=== PATIENT | female | born 1975 | race Hispanic/Latino ===

== ENCOUNTER 2019-09-05 19:24 | Emergency (ER) | payer OTHER, SELFPAY ==
--- NOTE | ~2019-09-05 | XR_ITS ---
EXAMINATION: XR chest 2V DATE: 09/05/2019 19:58 INDICATION: Chest pain and shortness of breath TECHNIQUE: PA and lateral views of the chest are obtained. COMPARISON: None available FINDINGS: The lungs are free of acute opacities. There is no pleural effusion or pneumothorax. The ca rdiomediastinal silhouette is normal. There is mild thoracic spondylosis. IMPRESSION: 1. No acute cardiopulmonary abnormality. Reviewed, dictated and finalized at location A.
--- NOTE | 2019-09-05 19:30 | ED.URI ---
HPI - URI/Sore Throat General Chief Complaint: Upper Respiratory Infection Stated Complaint: headache/jaw pain/sob/chest congestion Time Seen by Provider: 09/05/19 19:37 Source: patient and RN notes reviewed Mode of arrival: ambulatory Limitations: no limitations History of Present Illness HPI Narrative: 43 year female presents with concern for shortness of breath, headache, chest congestion, back and chest ache with deep breathing. Reports symptoms started 1 week ago and have gradually worsened. She has not taken her temperature, however reports feeling sweats. She reports one episode of diarrhea today. MD elicited complaint: other (chest congestion) Related Data Allergies Allergy/AdvReac Type Severity Reaction Status Date / Time No Known Drug Allergies Allergy Unknown Unknown Verified 09/05/19 19:28 Review of Systems Review of Systems: Narrative: CONSTITUTIONAL: Reports malaise, sweats. Denies chills, or fever. EYES: Denies visual changes, redness, or discharge. ENT: Denies rhinorrhea, congestion, sinus pain, otalgia and sore throat. Reports jaw pain CARDIOVASCULAR: Denies chest pain, palpitations, or edema. RESPIRATORY: Denies cough. Reports chest congestion, dyspnea. GASTROINTESTINAL: Denies abdominal pain, nausea, vomiting, diarrhea SKIN: Denies rash or itching. MUSCULOSKELETAL: Denies myalgia. NEUROLOGIC: Reports severe headache. All systems reviewed & are unremarkable except as noted in HPI and below PMFSH Social History Social History Gender identity (if verbalized by the patient): Female Comments At time of signature, agree with nursing past medical, surgical, social and family history. There is no relevant family history pertinent to the presenting complaint Exam Narrative: Exam Narrative: GENERAL: Well-appearing, well-nourished, and in no acute distress. HEAD: Normocephalic EYES: PERRLA, conjunctivae clear ENT: Nares clear, turbinates patent. Mucous membranes moist. TM pearly ramos with sharp light reflex bilaterally; no tragal tenderness. Oropharynx not erythematous without lesions. Tonsils not enlarged and without exudate, no drooling, no hoarseness, no trismus, uvula midline. NECK: Supple. No lymphadenopathy CHEST: Left lung clear to auscultation, crackles noted in the right lower lobe, otherwise breath sounds equal. No wheezing, rales, or stridor. No respiratory distress, speaks in full sentences. HEART: Regular rate and rhythm. No murmur heard. SKIN: Warm, dry, no rash. NEURO: Alert and oriented x3. PSYCH: Normal mood and affect Course Course Emergency Course: Patient is aware of diagnosis, understands and agrees to treatment plan. Anticipatory guidance given. Patient agrees to follow-up as directed and is aware of reasons to seek care at the emergency department. Portions of this record may have been created with voice recognition software Vital Signs Vital signs: Vital Signs Temperature 98.1 F 09/05/19 19:38 Pulse Rate 67 09/05/19 19:38 Respiratory Rate 20 09/05/19 19:38 Blood Pressure 121/79 09/05/19 19:38 Pulse Oximetry 100 09/05/19 19:38 Temperature 98.1 F 09/05/19 19:38 Pulse Rate 67 09/05/19 19:38 Respiratory Rate 20 09/05/19 19:38 Blood Pressure 121/79 09/05/19 19:38 Pulse Oximetry 100 09/05/19 19:38 Reviewed. MDM - URI/Sore Throat MDM Narrative Medical decision making narrative: Differential diagnosis considered: COVID-19 strep pharyngitis, allergic rhinitis, upper respiratory tract infection, sinusitis, rhinosinusitis, nasopharyngitis. viral pharyngitis, otitis media, otitis externa, pneumonia, bronchitis, viral cough syndrome, viral syndrome, and influenza. Exam findings show no acute concerns or changes; patient is non-toxic appearing and is in no distress. Patient is appropriate for outpatient treatment and follow-up. Critical Care Time Critical Care Time Critical Care Time: No Discharge Plan Discharge Clinical Impression: Shortness of b
[2019-09-05 19:38] VITALS: BP 121/79; PULSE 67; RESP 20; TEMP 36.7; O2SAT 100
== END 2019-09-05 20:41 | disposition home or self-care (01) ==
PROVIDERS: Emergency Provider Nurse Practitioner
DX: R06.02 Shortness of breath (principal); R09.89 Other specified symptoms and signs involving the circulatory and respiratory systems
CPT/HCPCS: 71046; 99213; G0463

== ENCOUNTER 2019-09-09 21:06 | Emergency (ER) | payer OTHER, SELFPAY ==
[2019-09-09 21:14] VITALS: BP 149/91; PULSE 79; RESP 16; TEMP 36.7; O2SAT 100
--- NOTE | 2019-09-09 21:24 | ED.ANXIETY ---
HPI - Anxiety General Chief Complaint: Anxiety Stated Complaint: anxiety attack? Time Seen by Provider: 09/09/19 21:20 Source: patient and RN notes reviewed Mode of arrival: ambulatory Limitations: no limitations History of Present Illness HPI narrative: A 43 y/o female presents to the ED with increased anxiety for the past 5 days. She states that she has been under more stress lately because of the COVID outbreak and because her mother in March. She reports associated SOB, feeling flush, nausea, mild epigastric ABD pain, and decreased appetite. She also reports lower back pain that she was seen for at for 5 days ago. She notes that they started her on abx at that time. She also notes that she had a similar event while in [place] after her mother in March. She denies any vomiting, lightheadedness, dizziness, tingling, CP, or numbness. MD complaint: anxiety Onset (ago): day(s) (5) Symptoms: dyspnea and other (feeling flush, nausea, mild epigastric ABD pain, decreased appetite, and lower back pain) History of similar episodes: Yes Provoking factors: recent /illness of family member (mother) and other (COVID outbreak) Associated symptoms: denies other symptoms Related Data Allergies Allergy/AdvReac Type Severity Reaction Status Date / Time No Known Drug Allergies Allergy Unknown Unknown Verified 09/09/19 21:16 Review of Systems Review of Systems: All systems reviewed & are unremarkable except as noted in HPI and below Constitutional: Constitutional: Reports poor appetite and Reports other (feeling flush) Cardiovascular: Cardiovascular: Denies chest pain and Denies lightheadedness Respiratory: Respiratory: Reports dyspnea Gastrointestinal: Gastrointestinal: Reports abdominal pain (mild epigastric), Reports nausea and Denies vomiting Musculoskeletal: Musculoskeletal: Reports back pain (lower) Neurologic: Denies dizziness, Denies numbness and Denies tingling Psychiatric: Psychiatric: Reports anxiety PMFSH Past Medical History Medical History Medical history unknown Surgical History Surgical History Surgical history unknown Social History Social History (Updated 09/09/19 @ 21:43 by Jeremy Barton) Smoking status: Never smoker Second hand tobacco smoke exposure: Yes Gender identity (if verbalized by the patient): Female Exam Narrative: Exam Narrative: General appearance: Well-developed, well-nourished, in tears, at the bedside Skin: Normal color Head: Normocephalic, nontraumatic Eyes: Clear conjunctiva ENT: Oropharynx normal, ears normal, nose normal Neck: Supple, nontender Chest and respiratory: Airway patent, no respiratory distress, no accessory muscle use Heart: Regular rate/rhythm Abdomen: Soft, nontender, no organomegaly, quiet bowel sounds Vascular: Normal peripheral pulses, normal capillary refill. Musculoskeletal: Normal range of motion, nontender back Neurologic: Alert and oriented ?3, BENCH GRINDER is normal as tested, no gross motor deficit Course Course Emergency Course: Improving Vital Signs Vital signs: Vital Signs Temperature 36.7 C 09/09/19 21:14 Pulse Rate 79 09/09/19 21:14 Respiratory Rate 16 09/09/19 21:14 Blood Pressure 149/91 H 09/09/19 21:14 Pulse Oximetry 100 09/09/19 21:14 Temperature 36.7 C 09/09/19 21:14 Pulse Rate 79 09/09/19 21:14 Respiratory Rate 16 09/09/19 21:14 Blood Pressure 149/91 H 09/09/19 21:14 Pulse Oximetry 100 09/09/19 21:14 MDM - Anxiety MDM Narrative Medical decision making narrative: Anxiety reaction is my concern. Lizete
[2019-09-09] MEDS: LORAZEPAM 0.5 MG TABLET 1 MG PO (21:50)
[2019-09-09 22:47] VITALS: BP 116/69; PULSE 71; RESP 18; O2SAT 100
== END 2019-09-09 22:45 | disposition home or self-care (01) ==
PROVIDERS: Emergency Provider Emergency Medicine
DX: F41.9 Anxiety disorder, unspecified (principal)
CPT/HCPCS: 99283; A9270

== ENCOUNTER 2019-09-18 01:13 | Emergency (ER) | payer OTHER, SELFPAY ==
--- NOTE | ~2019-09-18 | CT_ITS ---
EXAMINATION: CT abdomen pelvis w con DATE: 09/18/2019 02:17 INDICATION: Low abdominal pain. Nausea and vomiting. TECHNIQUE: Computed tomography (CT) of the abdomen and pelvis was performed with 100 mL Omnipaque 350 intravenous contrast. Automated exposure control and iterative reconstruction technique were employe d. The dose-length product was 235.65 mGy-cm. COMPARISON: CT abdomen 02/02/2007 FINDINGS: The visualized portions of the lung bases demonstrate mild atelectasis on the right. No ple ural effusion. The heart size is normal. No pericardial effusion. There are cysts in the liver measur ing up to 6 mm. There are changes of cholecystectomy. The spleen, pancreas, adrenal glands, and kidne ys are normal. There are no dilated loops of bowel. There are changes of appendectomy. There are no p athologically enlarged lymph nodes. There is no free intraperitoneal fluid. There is mild lumbar spon dylosis. IMPRESSION: 1. No etiology for the patient's symptoms. Reviewed, dictated and finalized at location A.
--- NOTE | 2019-09-18 01:21 | ED.ABDPAIN ---
HPI - Abdominal Pain General Chief Complaint: Abdominal Pain Stated Complaint: abd pain Time Seen by Provider: 09/18/19 01:16 Source: patient and RN notes reviewed Mode of arrival: ambulatory Limitations: no limitations History of Present Illness HPI narrative: Pt is a 43 y/o female who presents to the ED with c/o diffuse ABD pain starting 2 weeks ago. She notes that her pain becomes aggravated when she gets anxious. Pt states that she has had nausea accompanying her pain, and notes that she vomited yesterday. She currently denies any fever or diarrhea. Pt states that she hasn't taken any pain medications for her symptoms. MD elicited complaint: abdominal pain Onset (ago): week(s) (2) Location: diffuse Exacerbating factors: other (anxiety) Associated symptoms: nausea and vomiting Treatments prior to arrival: other (none) Related Data Allergies Allergy/AdvReac Type Severity Reaction Status Date / Time No Known Drug Allergies Allergy Unknown Unknown Verified 09/09/19 21:16 Review of Systems Review of Systems: All systems reviewed & are unremarkable except as noted in HPI and below Constitutional: Constitutional: Denies fever(s) Gastrointestinal: Gastrointestinal: Reports abdominal pain (diffuse ABD pain), Denies diarrhea, Reports nausea and Reports vomiting PMFSH Past Medical History Medical History (Updated 09/18/19 @ 03:02 by Ronaldo Padilla DO) Bronchitis Surgical History Surgical History (Updated 09/18/19 @ 02:49 by Riccardo Watt) Hx of appendectomy Hx of cholecystectomy Social History Social History Smoking status: Never smoker Second hand tobacco smoke exposure: Yes Gender identity (if verbalized by the patient): Female Exam Narrative: Exam Narrative: APPEARANCE: No acute distress, nontoxic, resting in bed HEENT: Normocephalic, atraumatic, OMM RESPIRATORY: No respiratory distress, clear to auscultation bilaterally with no rhonchi wheezing or rales CARDIOVASCULAR: RRR s murmur ABDOMINAL: Soft, nondistended, tender to palpation epigastric, right upper quadrant left upper quadrant, no tenderness in right lower quadrant left lower quadrant, no rebound or guarding MUSCULOSKELETAl: Moves all extremities. No clubbing, cyanosis or edema. NEURO: Awake and alert. Following commands, speech normal, no focal deficits SKIN:: Warm, dry. Normal Color PSYCHIATRIC: Normal affect/mood Course Course Emergency Course: Patient states that they are feeling much better at this time. States abdominal pain has improved. Repeat abdominal exam shows the patient's abdomen to be soft with no surgical abdomen present. Discussed with patient results of workup and diagnosis. Discussed need for follow-up with primary care physician, reasons to return to the emergency department in proper use of medication. Patient understands and agrees to current treatment plan Vital Signs Vital signs: Vital Signs Temperature 98.9 F 09/18/19 01:22 Pulse Rate 89 09/18/19 01:22 Respiratory Rate 18 09/18/19 01:22 Blood Pressure 116/92 H 09/18/19 01:22 Pulse Oximetry 100 09/18/19 01:22 Temperature 98.9 F 09/18/19 02:01 Pulse Rate 89 09/18/19 01:22 Respiratory Rate 18 09/18/19 01:22 Blood Pressure 116/92 H 09/18/19 01:22 Pulse Oximetry 100 09/18/19 01:22 MDM - Abdominal Pain MDM Narrative Medical decision making narrative: Patient's abdomen is soft without significant pain or signs of surgical abdomen on serial exams. Lab and x-ray evaluations are reviewed and patient is felt to be a reasonable candidate for outpatient management. Patient was instructed as to limitations of x-ray and laboratory evaluation and encouraged to return to ED or primary physician for repeat exam in 12 hours if continued or worsening pain Lab Data Result diagrams: 09/18/19 01:33 09/18/19 01:33 Labs: Lab Results 09/18/19 09/18/19 09/18/19 Range/Units 01:3
[2019-09-18 01:22] VITALS: BP 116/92; PULSE 89; RESP 18; TEMP 37.2; O2SAT 100
[2019-09-18] MEDS: SODIUM CHLORIDE 0.9% IV 1,000 ML 999 ML IV CONT (01:30)
[2019-09-18] MEDS: FAMOTIDINE 20 MG/2 ML VIAL IV PUSH (01:31)
[2019-09-18] MEDS: ONDANSETRON INJ 4 MG/2 ML VIAL IV PUSH (01:31)
[2019-09-18 01:44] LABS: Basophils Percent Auto 0.4 % (0.2-1.2); Eosinophils Absolute Auto 0.1 K/mm3 (0-0.3); Eosinophils Percent Auto 0.7 % (0-4.4); Hematocrit 38.4 % (37.0-47.0); Hemoglobin 13.3 g/dL (12.0-15.0); Immature Granulocyte Absolute 0.01 K/mm3 (0.00-0.031); Immature Granulocyte Percent A 0.1 % (0-0.5); Lymphocytes Absolute Auto 2.14 K/mm3 (0.9-3.2); Lymphocytes Percent Auto 31.6 % (18.3-44.2); Mean Corpuscular HGB Conc 34.6 g/dl (32-36); Mean Corpuscular Hemoglobin 29.6 pg (26-34); Mean Corpuscular Volume 85.5 fl (80-100); Mean Platelet Volume 10.1 fl (7.4-10.4); Monocytes Absolute Auto 0.6 K/mm3 (0.1-0.6); Monocytes Percent Auto 8.4 % (2.6-8.5); Neutrophils Percent Auto 58.8 % (45.5-73.1); Platelet Count Result 235 k/mm3 (150-375); Red Blood Count 4.49 M/mm3 (4.2-5.4); Red Cell Distribution Width 12.4 % (11.5-14.5); White Blood Count 6.8 K/mm3 (4.5-10.0)
[2019-09-18 01:49] LABS: Add Urine Microscopic? YES; Appearance Urine Clear (Clear); Bacteria Urine Trace /hpf; Bilirubin Urine Negative (Negative); Blood Urine 2+ (Negative); Color Urine Colorless (Yellow); Glucose Urine UA Negative (Negative); Ketones Urine Negative (Negative); Leukocyte Esterase Ur Negative LEU/UL (Negative); Mucus Urine Rare /lpf; Nitrate Urine Negative (Negative); Protein Urine Negative (Negative); RBC Urine 0-2 /hpf (0-2); Squamous Epithelial Cell Urine Few /hpf (Few); Urobilinogen Urine Negative mg/dL (<2.0); WBC Urine 0-3 /hpf
[2019-09-18 01:50] LABS: Specific Grav Ur 1.004 (1.001-1.035)
[2019-09-18 01:51] LABS: Alanine Aminotransferase 17 U/L (4-35); Albumin Level 4.4 g/dL (3.5-5.1); Alkaline Phosphatase 74 U/L (38-126); Aspartate Amino Transferase 20 U/L (14-36); Bilirubin,Total 0.6 mg/dL (0.2-1.3); Blood Urea Nitrogen 6 mg/dL (7-17); Calcium 9.5 mg/dL (8.4-10.2); Carbon Dioxide 24 mmol/L (22-30); Chloride 106 mmol/L (98-107); Estimated CRCL calculation 87 ml/min; Estimated Glomerular Filt Rate > 60; Glucose 113 mg/dL (65-105); Lipase 258 U/L (23-300); Potassium 3.1 mmol/L (3.4-5.0); Sodium 138 mmol/L (137-145)
[2019-09-18 02:01] VITALS: TEMP 37.2
[2019-09-18] MEDS: POTASSIUM CHLORIDE 20 MEQ TABLET 40 MEQ PO (03:06)
[2019-09-18 03:16] VITALS: BP 108/73; PULSE 79; RESP 14; TEMP 36.8; O2SAT 100
== END 2019-09-18 03:19 | disposition home or self-care (01) ==
PROVIDERS: Emergency Provider Emergency Medicine
DX: R10.13 Epigastric pain (principal)
CPT/HCPCS: 36415; 74177; 80053; 81001; 81025; 83690; 85025; 96361; 96374; 96375; 99284; A9270; J0131; J2405; J7030; Q9967

== ENCOUNTER 2019-09-21 14:12 | Emergency (ER) | payer OTHER, SELFPAY ==
[2019-09-21 14:14] VITALS: BP 118/72; PULSE 71; RESP 13; TEMP 36.8; O2SAT 100
--- NOTE | 2019-09-21 14:20 | ED.ABDPAIN ---
HPI - Abdominal Pain General Chief Complaint: Abdominal Pain Stated Complaint: abd pain Time Seen by Provider: 09/21/19 14:19 Source: patient and RN notes reviewed Mode of arrival: ambulatory Limitations: no limitations History of Present Illness HPI narrative: A 43 y/o female presents to the ED with severe, constant, epigastric ABD pain since 09/06/19. She reports associated decreased intake, dizziness, and nausea. She notes that the pain radiates into her back. She also notes that she has already been seen here multiple times for these same symptoms and has been d/c and told to follow up with a GI doctor. She reports that she has an appointment with a GI doctor in 3 days but that she couldn't stand the pain, so she decided to come back in. She denies any sick contacts or any vomiting, fevers, chills, cough, rhinorrhea, diarrhea, SOB, or CP. MD elicited complaint: abdominal pain Pertinent past history: none Onset (ago): day(s) (15) Pain Consistency: constant Location: epigastric Severity: severe Radiation: back Associated symptoms: nausea and other (dizziness and decreased intake) Related Data Allergies Allergy/AdvReac Type Severity Reaction Status Date / Time No Known Drug Allergies Allergy Unknown Unknown Verified 09/21/19 14:16 Review of Systems Review of Systems: All systems reviewed & are unremarkable except as noted in HPI and below Constitutional: Constitutional: Denies chills, Denies fever(s) and Reports poor appetite ENT: Denies nasal discharge Cardiovascular: Cardiovascular: Denies chest pain Respiratory: Respiratory: Denies cough and Denies dyspnea Gastrointestinal: Gastrointestinal: Reports abdominal pain (Epigastric), Denies diarrhea, Reports nausea and Denies vomiting Neurologic: Reports dizziness PMFSH Past Medical History Medical History (Updated 09/21/19 @ 14:45 by Ellie Viera MD) Bronchitis Gall bladder disease Surgical History Surgical History (Updated 09/21/19 @ 14:42 by Jeremy Barton) Hx of appendectomy Hx of cholecystectomy Hx of tubal ligation Social History Social History Smoking status: Never smoker Second hand tobacco smoke exposure: Yes Gender identity (if verbalized by the patient): Female Exam Narrative: Exam Narrative: General appearance: Well-developed, well-nourished Skin: Normal color Head: Normocephalic, nontraumatic Eyes: Clear conjunctiva ENT: Oropharynx normal, ears normal, nose normal Neck: Supple, nontender Chest and respiratory: Airway patent, no respiratory distress, no accessory muscle use Heart: Regular rate/rhythm Abdomen: Soft, mild diffuse tenderness epigastric area, no organomegaly, quiet bowel sounds Vascular: Normal peripheral pulses, normal capillary refill. Musculoskeletal: Normal range of motion, nontender back Neurologic: Alert and oriented ?3, CERAMICS TEACHER is normal as tested, no gross motor deficit Course Course Emergency Course: Stable Vital Signs Vital signs: Vital Signs Temperature 36.8 C 09/21/19 14:14 Pulse Rate 71 09/21/19 14:14 Respiratory Rate 13 09/21/19 14:14 Blood Pressure 118/72 09/21/19 14:14 Pulse Oximetry 100 09/21/19 14:14 Temperature 36.8 C 09/21/19 14:14 Pulse Rate 70 09/21/19 15:40 Respiratory Rate 16 09/21/19 15:40 Blood Pressure 105/76 09/21/19 15:40 Pulse Oximetry 100 09/21/19 15:40 MDM - Abdominal Pain MDM Narrative Medical decision making narrative: Patient presents with epigastric pain since September 04, patient been laid off for the last weeks because of the [place] epidemic, patient denies any fever, chills, coughing or any respiratory symptoms. Patient d
[2019-09-21 14:38] LABS: Basophils Percent Auto 0.2 % (0.2-1.2); Eosinophils Percent Auto 0.4 % (0-4.4); Hematocrit 36.9 % (37.0-47.0); Hemoglobin 12.8 g/dL (12.0-15.0); Immature Granulocyte Absolute 0.01 K/mm3 (0.00-0.031); Immature Granulocyte Percent A 0.2 % (0-0.5); Lymphocytes Absolute Auto 1.23 K/mm3 (0.9-3.2); Lymphocytes Percent Auto 25.7 % (18.3-44.2); Mean Corpuscular HGB Conc 34.7 g/dl (32-36); Mean Corpuscular Hemoglobin 29.8 pg (26-34); Monocytes Absolute Auto 0.5 K/mm3 (0.1-0.6); Monocytes Percent Auto 9.6 % (2.6-8.5); Neutrophils Absolute Auto 3.1 K/mm3 (1.3-6.7); Neutrophils Percent Auto 63.9 % (45.5-73.1); Platelet Count Result 207 k/mm3 (150-375); Red Blood Count 4.29 M/mm3 (4.2-5.4); Red Cell Distribution Width 12.4 % (11.5-14.5); White Blood Count 4.8 K/mm3 (4.5-10.0)
[2019-09-21 14:42] LABS: Add Urine Microscopic? YES; Appearance Urine Clear (Clear); Bacteria Urine Trace /hpf; Bilirubin Urine Negative (Negative); Blood Urine 3+ (Negative); Color Urine Yellow (Yellow); Glucose Urine UA Negative (Negative); Ketones Urine Negative (Negative); Leukocyte Esterase Ur Negative LEU/UL (Negative); Mucus Urine Heavy /lpf; Nitrate Urine Negative (Negative); Protein Urine 1+ mg/dL (Negative); Specific Grav Ur 1.015 (1.001-1.035); Squamous Epithelial Cell Urine Few /hpf (Few); WBC Urine 0-3 /hpf
[2019-09-21 14:49] LABS: Alanine Aminotransferase 20 U/L (4-35); Albumin Level 4.3 g/dL (3.5-5.1); Alkaline Phosphatase 63 U/L (38-126); Aspartate Amino Transferase 21 U/L (14-36); Bilirubin,Total 0.5 mg/dL (0.2-1.3); Blood Urea Nitrogen 7 mg/dL (7-17); Calcium 9.3 mg/dL (8.4-10.2); Carbon Dioxide 26 mmol/L (22-30); Chloride 106 mmol/L (98-107); Estimated CRCL calculation 102 ml/min; Estimated Glomerular Filt Rate > 60; Glucose 111 mg/dL (65-105); Lipase 253 U/L (23-300); Potassium 3.4 mmol/L (3.4-5.0); Sodium 140 mmol/L (137-145)
[2019-09-21 15:40] VITALS: BP 105/76; PULSE 70; RESP 16; O2SAT 100
== END 2019-09-21 15:40 | disposition home or self-care (01) ==
PROVIDERS: Emergency Medicine; Emergency Provider Emergency Medicine
DX: R10.13 Epigastric pain (principal)
CPT/HCPCS: 36415; 80053; 81001; 81025; 83690; 85025; 99283

== ENCOUNTER 2021-01-12 18:05 | Emergency (ER) | payer BC, SELFPAY ==
[2021-01-12 18:19] VITALS: BP 115/73; PULSE 80; RESP 16; TEMP 37.4; O2SAT 100
--- NOTE | 2021-01-12 18:36 | ED.URI ---
HPI - URI/Sore Throat General Chief Complaint: Upper Respiratory Infection Stated Complaint: sore throat Time Seen by Provider: 01/12/21 18:30 Source: patient, RN notes reviewed and old records reviewed Mode of arrival: ambulatory Limitations: no limitations History of Present Illness HPI Narrative: 45 year old female who presents to [facility] care with one week duration of sore throat, sinus drainage with congestion, bilateral ear pain with right greater than left for one week duration. Patient states that she has sinus congestion on the left side of he head with discomfort feeling behind her left eye. She reports also that her throat is burning and aching especially with swallowing rates pain 4/10. Patient reports that she has been taking OTC cold medication and some Mauritian medicine with no improvement in her symptoms. MD elicited complaint: sore throat, rhinorrhea, nasal congestion, sinus pain and other (right ear pain) Onset (ago): week(s) (1) Treatments prior to arrival: cold medicine and other ([place]itian medicine) Related Data Allergies Allergy/AdvReac Type Severity Reaction Status Date / Time No Known Drug Allergies Allergy Unknown Unknown Verified 09/21/19 14:16 Review of Systems Review of Systems: CONSTITUTIONAL: Denies fever, chills, or sweats. EYES: Denies visual changes, redness, or discharge. ENT: Positive for rhinorrhea, congestion, sore throat, or otalgia Right >Left CARDIOVASCULAR: Denies chest pain, palpitations, or edema. RESPIRATORY: Denies cough or dyspnea. GASTROINTESTINAL: Denies abdominal pain, nausea, vomiting, or diarrhea. GENITOURINARY: Denies dysuria or hematuria. SKIN: Denies rash or itching. MUSCULOSKELETAL: Denies back pain, joint pain, or myalgia. NEUROLOGIC: positive headache behind left eye area, no numbness, or weakness. PSYCHIATRIC: Positive history of anxiety or depression. All systems reviewed & are unremarkable except as noted in HPI and below PMFSH Past Medical History Medical History (Updated 01/17/21 @ 12:19 by Lupe Knight NP) Anxiety Bronchitis Gall bladder disease Surgical History Surgical History (Updated 09/21/19 @ 14:42 by Jeremy Barton) Hx of appendectomy Hx of cholecystectomy Hx of tubal ligation Family History Family History (Updated 01/17/21 @ 12:13 by Lupe Knight NP) Grandparent Leukemia Social History Social History (Updated 01/17/21 @ 12:21 by Lupe Knight NP) Smoking status: Never smoker Second hand tobacco smoke exposure: Yes Alcohol intake: current Alcohol use details: rare social Substance use: never Living arrangements: with family Gender identity (if verbalized by the patient): Female Exam Narrative: GENERAL: Well-appearing, well-nourished, and in no acute distress. HEAD: Normocephalic, atraumatic. EYES: PERRLA and EOMI. ENT: Nares red with clear rhinorrhea no epistaxis. Mucous membranes moist.TM's normal with good light reflex, throat pink with no lesions or exudates, tonsils red and enlarged post nasal drainage present, NECK: Supple. lymphadenopathy CHEST: Clear to auscultation. No respiratory distress.SAO2 100% on room air HEART: Regular rate and rhythm. No murmur heard. Normal peripheral pulses. ABDOMEN: Soft, nontender, nondistended, normal active bowel sounds. EXTREMITIES: Normal range of motion. No edema. SKIN: Warm, dry, no rash. NEURO: No focal deficits. Alert and oriented x3. Course Vital Signs Vital signs: Vital Signs Temperature 37.4 C 01/12/21 18:19 Pulse Rate 80 01/12/21 18:19 Respiratory Rate 16 01/12/21 18:19 Blood Pressure 115/73 01/12/21 18:19 Pulse Oximetry 100 01/12/21 18:19 Temperature 37.4 C 01/12/21 18:19 Pulse Rate 80 01/12/21 18:19 Respiratory Rate 16 01/12/21 18:19 Blood Pressure 115/73 01/12/21 18:19 Pulse Oximetry 100 01/12/21 18:19 MDM - URI/Sore Throat Differential Diagnosis Differential diagnosis: Likely upper respiratory infection,
== END 2021-01-12 18:57 | disposition home or self-care (01) ==
PROVIDERS: Emergency Provider Registered Nurse
DX: J03.90 Acute tonsillitis, unspecified (principal); J06.9 Acute upper respiratory infection, unspecified
CPT/HCPCS: 87081; 87880; 99213; G0463

== ENCOUNTER 2021-02-02 16:41 | Emergency (ER) | payer BC, SELFPAY ==
--- NOTE | ~2021-02-02 | XR_ITS ---
XR chest 2V DATE: 02/02/2021 17:10 INDICATION: Productive cough for one week. Nonsmoker. TECHNIQUE: PA and lateral views COMPARISON: 09/05/2019 2 view chest FINDINGS: Normal heart size. No hilar or mediastinal enlargement. No pulmonary infiltrate or consolid ation, pleural effusion or pulmonary vascular congestion or pneumothorax. Status post cholecystectomy. IMPRESSION: No active cardiopulmonary disease Reviewed, dictated and finalized at location A.
--- NOTE | 2021-02-02 17:07 | ED.URI ---
HPI - URI/Sore Throat General Chief Complaint: Upper Respiratory Infection Stated Complaint: cough/chest pain Source: patient and RN notes reviewed Limitations: no limitations History of Present Illness HPI Narrative: The vaccinated patient, a non-smoker/nondrinker here with other sick family members, presents with today with cough. Patient states she was seen about a couple weeks ago and treated for sore throat and cough with amoxicillin and Decadron. She notes some mild improvement, but still has some cough, possible wheeze and odynophagia. No sneezing, fever, pets/smokers triggers, sputum changes; within the year she had Covid illness-now no fever, loss of taste/smell, rash, vomiting/diarrhea. Symptoms are mild, unrelated to food, position. Related Data Home Medications Medication Instructions Recorded Confirmed amitriptyline 25 mg PO DAILY 02/02/21 02/02/21 Allergies Allergy/AdvReac Type Severity Reaction Status Date / Time No Known Drug Allergies Allergy Unknown Unknown Verified 02/02/21 16:55 Review of Systems Review of Systems: General/Constitutional: No weight loss,fever Eyes: N0: Redness,discharge Ears/Nose/Throat: No: Epistaxis,ear discharge Respiratory: Denies: Hemoptysis Gastrointestinal: No Vomiting, Bleeding-rectal Skin: No Lumps, eruption Neurologic: No Focal Weakness,Sz Hematologic: Denies: Petechiae/Purpura Psychiatric: No: Suicida ideationl All Other Systems: Reviewed and Negative [facility] Past Medical History Medical History (Updated 02/02/21 @ 17:53 by Emmanuel Garcia MD) Anxiety Bronchitis Gall bladder disease Surgical History Surgical History (Updated 09/21/19 @ 14:42 by Jeremy Barton) Hx of appendectomy Hx of cholecystectomy Hx of tubal ligation Family History Family History (Updated 01/17/21 @ 12:13 by Lupe Knight NP) Grandparent Leukemia Social History Social History (Updated 01/17/21 @ 12:21 by Lupe Knight NP) Smoking status: Never smoker Second hand tobacco smoke exposure: Yes Alcohol intake: current Alcohol use details: rare social Substance use: never Gender identity (if verbalized by the patient): Female Comments At time of signature, agree with nursing past medical, surgical, social and family history. There is no relevant family history pertinent to the presenting complaint Exam Narrative: General Appearance: Well appearing, No distress EYE: PERRLA, Conjunctiva clear Ears: External ear normal Nose: Normal nose Mouth/Throat: Normal appearing, Normal lips Neck: Supple Respiratory: Airway patent, No respiratory distress Cardiovascular: RRR Abdomen: Soft, Non-tender, Musculoskeletal: Full ROM Skin: Warm, Dry Neurological: A&O x3, CN II-X intact Psychiatric: Normal mood, Normal affect MDM - URI/Sore Throat Lab Data Labs: Lab Results 02/02/21 Range/Units Unknown POC SARS CoV-2 Ag Negative (Negative) Discharge Plan Discharge Clinical Impression: Cough Patient Disposition: Home, Self-Care Condition: Stable Instructions: Antibiotic Form, Chronic Cough (ED) Additional Instructions: See your PMD in follow-up You may also try [id number] antacids [like Pepcid, or Prilosec] Prescriptions: New azithromycin 250 mg tablet See Rx Instructions .ROUTE .COMPLEX Qty: 6 RF: 0 benzonatate [Tessalon Perles] 100 mg capsule 100 mg PO TID Qty: 20 RF: 1 albuterol sulfate [Ventolin HFA] 90 mcg/actuation HFA aerosol inhaler 2 puff INHALATION QID PRN (Reason: shortness of breath or wheezing) Qty: 8.5 RF: 1 No Action amitriptyline 25 mg tablet 25 mg PO DAILY RF: 0 Follow-up/Referrals: UNKNOWN,DOCTOR [Primary Care Provider] -
== END 2021-02-02 18:03 | disposition home or self-care (01) ==
PROVIDERS: Emergency Provider Emergency Medicine
DX: R05 Cough (principal); Z20.822 Contact with and (suspected) exposure to COVID-19
CPT/HCPCS: 71046; 87426; 99213; C9803; G0463

== ENCOUNTER 2021-12-20 01:22 | Emergency (ER) | payer OTHER, SELFPAY ==
--- NOTE | ~2021-12-20 | XR_ITS ---
EXAMINATION: XR chest 1V portable INDICATION: Cough TECHNIQUE: Portable AP chest at 0 to 46 hours COMPARISON: 02/02/2021 FINDINGS: There are minimal airspace opacities in the left lung base. No pleural effusion or pneumoth orax. The cardiomediastinal silhouette is normal. IMPRESSION: 1. Minimal left basilar airspace opacity, consistent with atelectasis versus pneumonia Reviewed, dictated and finalized at location B. IMPRESSION: 1. Minimal left basilar airspace opacity, consistent with atelectasis versus pn eumonia
[2021-12-20 01:34] VITALS: BP 117/84; PULSE 79; RESP 18; TEMP 36.6; O2SAT 99
--- NOTE | 2021-12-20 02:06 | ED.GENADULT ---
HPI - General Adult General Chief complaint: Upper Respiratory Infection Stated complaint: COUGHING FITS Time Seen by Provider: 12/20/21 01:28 History of Present Illness HPI narrative: 38-year-old female presenting to the emergency department for evaluation persistent cough. Patient states Sunday she was having some sore throat and had some laryngitis. Patient states on Sunday and she began developing cough. Patient did have follow-up with her primary care physician and was provided albuterol inhaler and was taking [id number] cough medication. Patient states tonight just before arrival she had onset of a coughing fit. Patient states in response to coughing fit she had some generalized chest tightness. Patient did use her albuterol inhaler and states that this proved her symptoms. Upon arrival emergency department patient is in no distress and has only minimal cough. Patient denies any previous history of lung disease. Patient is not a smoker. Patient is vaccinated against COVID. Patient denies any known COVID exposure. Related Data Home Medications Medication Instructions Recorded Confirmed amitriptyline 25 mg tablet 25 mg PO DAILY 02/02/21 02/02/21 Allergies Allergy/AdvReac Type Severity Reaction Status Date / Time No Known Drug Allergies Allergy Unknown Unknown Verified 12/20/21 01:41 Review of Systems Review of Systems: CONSTITUTIONAL: Denies fever, chills, or sweats. EYES: Denies visual changes, redness, or discharge. ENT: Denies rhinorrhea, congestion, sore throat, or otalgia. CARDIOVASCULAR: Denies chest pain, palpitations, or edema. RESPIRATORY: See HPI GASTROINTESTINAL: Denies abdominal pain, nausea, vomiting, or diarrhea. GENITOURINARY: Denies dysuria or hematuria. SKIN: Denies rash or itching. MUSCULOSKELETAL: Denies back pain, joint pain, or myalgia. NEUROLOGIC: Denies headache, numbness, or weakness. [facility] Past Medical History Medical History (Updated 12/20/21 @ 04:20 by Willem Reyez MD) Anxiety Bronchitis Gall bladder disease Surgical History Surgical History (Updated 09/21/19 @ 14:42 by Jeremy Barton) Hx of appendectomy Hx of cholecystectomy Hx of tubal ligation Family History Family History (Updated 01/17/21 @ 12:13 by Lupe Knight NP) Grandparent Leukemia Social History Social History (Updated 01/17/21 @ 12:21 by Lupe Knight NP) Smoking status: Never smoker Second hand tobacco smoke exposure: Yes Alcohol intake: current Alcohol use details: rare social Substance use: never Gender identity (if verbalized by the patient): Female Exam Narrative: APPEARANCE: Well appearing, no pain, no distress, well-nourished. HEAD: normocephalic, atraumatic. EYES: PERRLA/EOMI, conjunctivae clear. NOSE: Normal no drainage THROAT: Pharynx clear, no exudate. NECK: Supple. No adenopathy, no masses. RESPIRATORY: Airway patent, respirations nonlabored. Clear to auscultation bilaterally, no rales, rhonchi, wheezing. CARDIOVASCULAR: Regular rate and rhythm without murmurs rubs or gallops. ABDOMINAL: Soft, nontender, nondistended, normal bowel sounds MUSCULOSKELETAL: Moves all extremities. Strength/ROM intact, No edema, No calf tenderness. NEURO: Alert. Cranial nerves II through XII intact. Grossly intact SKIN: Warm, dry. Normal Color Course Course Emergency Course: Patient reports significant improvement after the breathing treatment. Patient's cough has been controlled. Chest x-ray shows no acute cardiopulmonary abnormality. Patient already has and a butyryl nebulizer at home. Patient was provided Tessalon Perles to additionally help with cough. Patient's COVID was negative. Vital Signs Vital signs: Vital Signs Temperature 97.8 F 12/20/21 01:34 Pulse Rate 79 12/20/21 01:34 Respiratory Rate 18 12/20/21 01:34 Blood Pressure 117/84 12/20/21 01:34 Pulse Oximetry 99 12/20/21 01:34 Oxygen Delivery Room Air 12/20/21 01:34
[2021-12-20] MEDS: ALBUTEROL SULFATE NEB 2.5 MG/3 ML INH 5 MG INHALATION (02:27)
[2021-12-20 02:28] VITALS: PULSE 68; RESP 18
[2021-12-20 02:37] VITALS: PULSE 68; RESP 18
[2021-12-20] MEDS: BENZONATATE 100 MG CAPSULE PO (03:26)
[2021-12-20 03:28] VITALS: BP 108/68; PULSE 88; RESP 18; O2SAT 100
[2021-12-20 04:13] LABS: SARS-CoV-2 RNA PCR Negative
[2021-12-20 04:36] VITALS: BP 114/68; PULSE 76; RESP 18; O2SAT 100
== END 2021-12-20 04:37 | disposition home or self-care (01) ==
PROVIDERS: Emergency Provider Emergency Medicine
DX: J98.01 Acute bronchospasm (principal); R05.1 Acute cough; Z20.822 Contact with and (suspected) exposure to COVID-19; F41.9 Anxiety disorder, unspecified
CPT/HCPCS: 71045; 94640; 99283; A9270; C9803; U0003; U0005

== ENCOUNTER 2021-12-22 11:55 | Emergency (ER) | payer SELFPAY ==
[2021-12-22 12:04] VITALS: BP 109/72; PULSE 71; RESP 16; TEMP 36.6; O2SAT 98
[2021-12-22 12:05] VITALS: BP 109/72; PULSE 71; RESP 16; TEMP 36.6; O2SAT 98
--- NOTE | 2021-12-22 12:18 | ED.URI ---
HPI - URI/Sore Throat General Chief Complaint: Upper Respiratory Infection Stated Complaint: cough Time Seen by Provider: 12/22/21 12:18 Source: patient Mode of arrival: ambulatory Limitations: no limitations History of Present Illness HPI Narrative: 46 yo F presents with c/o continued cough, SOB with exertion, intermittent wheezing. Hx of asthma. using albuterol inhaler with no relief. Was seen in ER two days ago and given tessalon pearle. had neg cheset xr and neg covid test. Asking for a neb tx. States that it really helped. Also requesting medication to do neb at home. States she doesn't have a machine but can use her daughters. Does not have insurance and doesn't want to buy another one. No fever/chills. all systems reviewed and negative except as noted above. Related Data Home Medications Medication Instructions Recorded Confirmed albuterol 90 mcg/actuation aerosol 90 mcg inhalation Q4-6H PRN 12/22/21 12/22/21 inhaler difficulty breathing amitriptyline 25 mg tablet 25 mg PO HS 12/22/21 12/22/21 Allergies Allergy/AdvReac Type Severity Reaction Status Date / Time No Known Drug Allergies Allergy Unknown Unknown Verified 12/22/21 12:19 Review of Systems Review of Systems: CONSTITUTIONAL: Denies fever, chills, or sweats. EYES: Denies visual changes, redness, or discharge. ENT: Denies rhinorrhea, congestion, sore throat, or otalgia. CARDIOVASCULAR: Denies chest pain, palpitations, or edema. RESPIRATORY: Reports cough and dyspnea. GASTROINTESTINAL: Denies abdominal pain, nausea, vomiting, or diarrhea. GENITOURINARY: Denies dysuria or hematuria. SKIN: Denies rash or itching. MUSCULOSKELETAL: Denies back pain, joint pain, or myalgia. NEUROLOGIC: Denies headache, numbness, or weakness. PSYCHIATRIC: Denies anxiety or depression. All other systems reviewed are negative, except as documented in HPI. [facility] Past Medical History Medical History (Updated 12/22/21 @ 13:01 by Luma Soto NP) Anxiety Bronchitis Gall bladder disease Surgical History Surgical History (Updated 09/21/19 @ 14:42 by Jeremy Barton) Hx of appendectomy Hx of cholecystectomy Hx of tubal ligation Family History Family History (Updated 01/17/21 @ 12:13 by Lupe Knight NP) Grandparent Leukemia Social History Social History (Updated 01/17/21 @ 12:21 by Lupe Knight NP) Smoking status: Never smoker Second hand tobacco smoke exposure: Yes Alcohol intake: current Alcohol use details: rare social Substance use: never Gender identity (if verbalized by the patient): Female Comments At time of signature, agree with nursing past medical, surgical, social and family history. There is no relevant family history pertinent to the presenting complaint. Exam Narrative: GENERAL: This is a well-nourished, well-developed patient, in no apparent distress. HEAD: normocephalic, atraumatic. EYES: PERRL. Sclera clear/white. Vision is grossly intact. EARS: External ears normal, auditory canals clear and without drainage, TMs normal without perforation. Hearing grossly intact. NOSE: External nose normal with no obvious nasal discharge, nares without redness, no rhinorrhea. THROAT: Mucous membranes moist, posterior pharynx clear. NECK: Neck supple, non-tender without lymphadenopathy, masses or thyromegaly. CARDIOVASCULAR: Regular rate and rhythm without murmurs, gallops, or rubs. RESPIRATORY: Mildly decreased lung sounds. No wheezing rhonchi or coarseness noted SKIN: warm, Dry, intact with no suspicious lesions or rash, good texture and turgor. NEURO: awake, alert, and oriented to person, place and time. There were no obvious focal neurologic abnormalities. EXTREMITIES: No joint tenderness, effusion, or edema noted. Course Course Level of Care: Express Care Visit Reevaluation(s) Reevaluation #1: Lung sounds clear on auscultation after albuterol treatment. Vital Signs Vital signs: Vital Signs Temperature 36.6 C
[2021-12-22] MEDS: ALBUTEROL SULFATE NEB 2.5 MG/3 ML INH INHALATION (12:47)
== END 2021-12-22 13:25 | disposition home or self-care (01) ==
PROVIDERS: Emergency Provider Nurse Practitioner Family
DX: J45.901 Unspecified asthma with (acute) exacerbation (principal); J06.9 Acute upper respiratory infection, unspecified
CPT/HCPCS: 99213; G0463

== ENCOUNTER 2022-01-03 19:21 | Emergency (ER) | payer SELFPAY ==
[2022-01-03 19:30] VITALS: BP 104/78; PULSE 66; RESP 16; TEMP 36.7; O2SAT 100
--- NOTE | 2022-01-03 20:12 | ED.URI ---
HPI - URI/Sore Throat General Chief Complaint: Upper Respiratory Infection Stated Complaint: Sore Throat,Cough Time Seen by Provider: 01/03/22 19:49 Source: patient Mode of arrival: ambulatory Limitations: no limitations History of Present Illness HPI Narrative: Patient presents today complaining of cough and sore throat. States the symptoms have been ongoing for at least the last 2 to 3 weeks. She has been [facility] this month for same symptoms. She has been treated with steroids, cough medicine, nebulizer treatments. States symptoms have not improved. Reports associated symptoms include fatigue and headache with coughing episodes. Patient is here wondering why her symptoms are persisting. She does not have a PCP. Related Data Home Medications Medication Instructions Recorded Confirmed albuterol 90 mcg/actuation aerosol 90 mcg inhalation Q4-6H PRN 12/22/21 12/22/21 inhaler difficulty breathing amitriptyline 25 mg tablet 25 mg PO HS 12/22/21 12/22/21 Allergies Allergy/AdvReac Type Severity Reaction Status Date / Time No Known Drug Allergies Allergy Unknown Unknown Verified 12/22/21 12:19 Review of Systems Review of Systems: CONSTITUTIONAL: Denies body aches, fever, chills, or sweats.+ Fatigue EYES: Denies visual changes, redness, or discharge. ENT: Denies rhinorrhea, congestion, or otalgia.+ Sore throat CARDIOVASCULAR: Denies chest pain, palpitations, or edema. RESPIRATORY: Denies dyspnea.+ Cough GASTROINTESTINAL: Denies abdominal pain, nausea, vomiting, or diarrhea. GENITOURINARY: Denies dysuria or hematuria. SKIN: Denies rash, itching, or wounds. MUSCULOSKELETAL: Denies back pain, joint pain, or myalgia. NEUROLOGIC: Denies numbness, tingling, or weakness.+ Headache PSYCH: Denies depression or anxiety. [facility] Past Medical History Medical History Anxiety Bronchitis Gall bladder disease Surgical History Surgical History Hx of appendectomy Hx of cholecystectomy Hx of tubal ligation Family History Family History Grandparent Leukemia Social History Social History Smoking status: Never smoker Second hand tobacco smoke exposure: Yes Alcohol intake: current Alcohol use details: rare social Substance use: never Gender identity (if verbalized by the patient): Female Comments At time of signature, I have reviewed and agree with nursing past medical, surgical, social and family history unless otherwise noted. Please see nursing chart for further information. There is no relevant family history pertinent to the presenting complaint Exam Narrative: GENERAL: Well-appearing, well-nourished, and in no acute distress. HEAD: Normocephalic, atraumatic. EYES: EOMI. No redness or drainage. Conjunctivae normal. ENT: Mucous membranes pink and moist. Nares clear. No rhinorrhea. TMs normal bilaterally. Throat normal. Uvula midline. NECK: Normal AROM. Supple. No lymphadenopathy. CHEST: No respiratory distress. Clear to auscultation. HEART: Regular rate and rhythm. No murmur appreciated. Normal peripheral pulses. EXTREMITIES: Normal range of motion. No edema. SKIN: Warm, dry, no rash. Capillary refill normal. Normal skin turgor. NEURO: No focal deficits. Alert and oriented x3. Gait steady. PSYCH: Normal affect. No signs of depression or anxiety. Course Course Level of Care: Express Care Visit Vital Signs Vital signs: Vital Signs Temperature 98.1 F 01/03/22 19:30 Pulse Rate 66 01/03/22 19:30 Respiratory Rate 16 01/03/22 19:30 Blood Pressure 104/78 01/03/22 19:30 Pulse Oximetry 100 01/03/22 19:30 Oxygen Delivery Room Air 01/03/22 19:30 Temperature 98.1 F
== END 2022-01-03 20:18 | disposition home or self-care (01) ==
PROVIDERS: Emergency Provider Nurse Practitioner
DX: J02.9 Acute pharyngitis, unspecified (principal); J40 Bronchitis, not specified as acute or chronic
CPT/HCPCS: 87081; 99213; G0463

== ENCOUNTER 2022-05-12 22:55 | Emergency (ER) | payer SELFPAY ==
--- NOTE | ~2022-05-12 | XR_ITS ---
XR chest 2V DATE: 05/12/2022 23:30 INDICATION: Chest pain TECHNIQUE: PA and lateral views COMPARISON: 02/02/2021 2 view chest FINDINGS: Normal heart size. No hilar or mediastinal enlargement. The lungs are normally inflated and clear of infiltrate or consolidation. No pleural effusion or pulmonary vascular congestion or pneumo thorax. Surgical clips, right upper quadrant of abdomen IMPRESSION: No active cardiopulmonary disease Status post cholecystectomy Reviewed, dictated and finalized at location A. RICT ENGINEER
--- NOTE | ~2022-05-12 | CT_ITS ---
EXAMINATION: CT abdomen pelvis w con DATE: 05/13/2022 01:58 INDICATION: Epigastric abdominal pain. Transaminitis. TECHNIQUE: Computed tomography (CT) of the abdomen and pelvis was performed with 100 CC Omnipaque 350 intravenous contrast. Automated exposure control and iterative reconstruction technique were employe d. Exam dose: 383.57 mGy-cm total exam DLP. COMPARISON: 09/18/2019 CT abdomen pelvis FINDINGS: There is mild dependent right lower lobe atelectasis. The lung bases are clear of consolida tion. Normal heart size. No pericardial or pleural effusion. Small sliding hiatal hernia. There are two 6 mm or smaller probable hepatic cysts. Status post cholecystectomy. Mild prominence of the common bile duct, likely due to the postcholecyst ectomy state. No intrahepatic bile duct dilatation. Stomach size is within normal range. No pancreatic mass lesion, calcification or ductal dilatation. Normal morphology of the adrenal glands. No renal mass lesion or urinary tract calculus or hydroureteronephrosis. Normal caliber of the abdominal aorta. No intraperitoneal or retroperitoneal or pelvic mass lesion or adenopathy or ascites. Retroverted uterus. The uterus and adnexal areas and urinary bladder are otherwise unremarkable. Status post appendectomy. Mild colonic diverticulosis; no CT evidence of diverticulitis. No bowel obs truction or intraperitoneal free air. Small fat-containing umbilical hernia. Included skeletal structures are unremarkable. No suspicious osteolytic or osteoblastic lesions. IMPRESSION: Status post cholecystectomy Status post appendectomy Small hepatic cysts Reviewed, dictated and finalized at Location A. Reviewed, dictated and finalized at location A. BUSINESS DEVELOPMENT
--- NOTE | 2022-05-12 22:54 | ECG_ITS ---
Measurements Intervals [place] Rate: 75 P: 54 [place]: 164 QRS: 27 QRSD: 85 T: 29 QT: 355 QTc: 397 Interpretive Statements SINUS RHYTHM LOW QRS VOLTAGE IN PRECORDIAL LEADS BORDERLINE T WAVE ABNORMALITY- ANTERIOR LEADS BASELINE ARTIFACT- V4 BORDERLINE ECG NO PREVIOUS ECG AVAILABLE FOR COMPARISON Electronically Signed On 05-13-2022 9:39:19 AUDITOR SUPERVISOR by Boris Baig D.O.
[2022-05-12 22:55] VITALS: BP 118/79; PULSE 79; RESP 20; TEMP 36.9; O2SAT 100
[2022-05-12 23:10] VITALS: PULSE 75; RESP 19; O2SAT 100
[2022-05-12 23:15] VITALS: PULSE 98; RESP 24; O2SAT 100
[2022-05-12 23:26] LABS: Basophils Percent Auto 0.1 % (0.2-1.2); Eosinophils Percent Auto 0.1 % (0-4.4); Hematocrit 34.3 % (37.0-47.0); Hemoglobin 11.6 g/dL (12.0-15.0); Immature Granulocyte Absolute 0.02 K/mm3 (0.00-0.031); Immature Granulocyte Percent A 0.3 % (0-0.5); Lymphocytes Absolute Auto 0.78 K/mm3 (0.9-3.2); Lymphocytes Percent Auto 11.5 % (18.3-44.2); Mean Corpuscular HGB Conc 33.8 g/dl (32-36); Mean Corpuscular Hemoglobin 28.4 pg (26-34); Mean Corpuscular Volume 84.1 fl (80-100); Mean Platelet Volume 9.2 fl (7.4-10.4); Monocytes Absolute Auto 0.3 K/mm3 (0.1-0.6); Monocytes Percent Auto 4.9 % (2.6-8.5); Neutrophils Absolute Auto 5.6 K/mm3 (1.3-6.7); Neutrophils Percent Auto 83.1 % (45.5-73.1); Platelet Count Result 215 k/mm3 (150-375); Red Blood Count 4.08 M/mm3 (4.2-5.4); Red Cell Distribution Width 14.6 % (11.5-14.5); White Blood Count 6.8 K/mm3 (4.5-10.0)
[2022-05-12 23:37] LABS: Prothrombin Time 12.8 Seconds (11.1-14.7)
[2022-05-12 23:38] LABS: Partial Thromboplastin Time 30.1 SECONDS (22.3-36.8)
[2022-05-12 23:39] LABS: Alanine Aminotransferase 37 U/L (6-35); Albumin Level 4.2 g/dL (3.5-5.1); Alkaline Phosphatase 141 U/L (38-126); Anion Gap 9 mmol/L (8-16); Aspartate Amino Transferase 70 U/L (14-36); Bilirubin,Total 0.3 mg/dL (0.2-1.3); Blood Urea Nitrogen 10 mg/dL (7-17); Carbon Dioxide 23 mmol/L (22-30); Chloride 107 mmol/L (98-107); Estimated CRCL calculation 97 ml/min; Estimated Glomerular Filt Rate > 60; Glucose 114 mg/dL (65-110); Lipase 131 U/L (23-300); Potassium 3.6 mmol/L (3.4-5.0); Sodium 139 mmol/L (137-145)
[2022-05-12 23:50] LABS: Troponin I < 0.012 ng/mL (0.000-0.034)
[2022-05-12 23:51] VITALS: PULSE 97; RESP 18; O2SAT 100
[2022-05-12] MEDS: PANTOPRAZOLE SODIUM IV 40 MG VIAL IV PUSH (23:59)
[2022-05-13] VITALS (18 sets, daily range): BP systolic 101–112; BP diastolic 68–80; PULSE 68–92; RESP 10–24; O2SAT 97–100
--- NOTE | 2022-05-13 00:14 | ED.CHESTPAIN ---
HPI - Chest Pain General Chief Complaint: Chest Pain Stated Complaint: Chest Pain Time Seen by Provider: 05/12/22 23:03 Source: patient Mode of arrival: ambulatory Limitations: language barrier (patient's family member is interpreting which she prefers) History of Present Illness HPI narrative: This is a 46 year old female that presents to the ER for chest pain ongoing over the last couple of hours. Reports she was lying down when the pain started. She had eaten urdu food for dinner. It started in the epigastrium as a sharp pain that turned into a pressure and radiated into the chest. Reports associated sweats. She took a medicine for indigestion and was given Nitroglycerin en route via EMS with improvement in her pain. Denies fever, cough, shortness of breath, or vomiting. Related Data Home Medications Medication Instructions Recorded Confirmed amitriptyline 25 mg tablet 25 mg PO HS 12/22/21 12/22/21 Allergies Allergy/AdvReac Type Severity Reaction Status Date / Time No Known Drug Allergies Allergy Unknown Unknown Verified 05/12/22 23:00 Review of Systems Review of Systems: CONSTITUTIONAL: Denies fever CARDIOVASCULAR: Reports chest pain. Nishant edema. RESPIRATORY: Denies cough or dyspnea. GASTROINTESTINAL: Reports abdominal pain, nausea. Denies vomiting All systems reviewed & are unremarkable except as noted in HPI and below PMFSH Past Medical History Medical History Anxiety Bronchitis Gall bladder disease Surgical History Surgical History Hx of appendectomy Hx of cholecystectomy Hx of tubal ligation Family History Family History Grandparent Leukemia Social History Social History Smoking status: Never smoker Second hand tobacco smoke exposure: Yes Alcohol intake: current Alcohol use details: rare social Substance use: never Gender identity (if verbalized by the patient): Female Exam Narrative: GENERAL: Well-appearing, well-nourished, and in no acute distress. HEAD: Normocephalic, atraumatic. EYES: EOMI. ENT: Mucous membranes moist. Oropharynx without tonsillar hypertrophy exudate or other lesions. CHEST: Clear to auscultation. No respiratory distress. No wheezes rales or rhonchi HEART: Regular rate and rhythm. No murmur heard. Normal peripheral pulses. ABDOMEN: Soft, nontender, nondistended, normal active bowel sounds. EXTREMITIES: Normal range of motion. No edema. SKIN: Warm, dry, no rash. NEURO: No focal deficits. Alert and oriented x3. PSYCH: Normal mood and affect Course Vital Signs Vital signs: Vital Signs Temperature 98.5 F 05/12/22 22:55 Pulse Rate 79 05/12/22 22:55 Respiratory Rate 20 05/12/22 22:55 Blood Pressure 118/79 05/12/22 22:55 Pulse Oximetry 100 05/12/22 22:55 Oxygen Delivery Room Air 05/12/22 22:55 Temperature 98.5 F 05/12/22 22:55 Pulse Rate 68 05/13/22 04:16 Respiratory Rate 16 05/13/22 04:15 Blood Pressure 101/74 05/13/22 04:16 Pulse Oximetry 100 05/13/22 04:16 Oxygen Delivery Room Air 05/12/22 22:55 MDM - Chest Pain MDM Narrative Medical decision making narrative: Patient presents to the ER for epigastric pain ongoing over the last couple of hours. Reports a sharp pain that radiated into her chest. Her vitals are normal. Patient is no acute distress. Reports relief with Protonix. CBC is without leukocytosis. Shows mild normocytic anemia with hemoglobin of 11.6. Metabolic panel with mild transaminitis. Lipase is normal. EKG without concerning ST changes and baseline and 3-hour troponin are negative. Chest x-ray without acute cardiopulmonary normality. CT scan abdomen pelvis shows fatty liver disease with liver cysts. Likely cause of her mild transaminitis. No acute
[2022-05-13 03:27] LABS: Troponin I < 0.012 ng/mL (0.000-0.034)
[2022-05-13 03:53] LABS: Influenza A QL RT-PCR Positive (Negative); Influenza B QL RT-PCR Negative (Negative); SARS-CoV-2 RNA PCR Negative
== END 2022-05-13 04:33 | disposition home or self-care (01) ==
PROVIDERS: Emergency Provider Physician Assistant
DX: J10.1 Influenza due to other identified influenza virus with other respiratory manifestations (principal); R10.13 Epigastric pain; Z20.822 Contact with and (suspected) exposure to COVID-19; F41.9 Anxiety disorder, unspecified; Z77.22 Contact with and (suspected) exposure to environmental tobacco smoke (acute) (chronic); R94.31 Abnormal electrocardiogram [ECG] [EKG]; K76.89 Other specified diseases of liver
CPT/HCPCS: 36415; 71046; 74177; 80053; 83690; 84484; 85025; 85610; 85730; 87636; 93005; 96365; 96375; 99284; C9113; J0131; Q9967

== ENCOUNTER 2024-03-04 10:06 | Emergency (ER) | payer OTHER, SELFPAY ==
--- NOTE | ~2024-03-04 | XR_ITS ---
EXAMINATION: XR chest 2V DATE: 03/04/2024 11:58 INDICATION: Chest pain. Syncopal episode. TECHNIQUE: PA and lateral views of the chest were obtained. COMPARISON: Chest radiograph dated 05/12/[address] dated 03/04/2024 FINDINGS: The lungs are clear with no focal airspace opacities, pulmonary edema, pleural effusion or pneumothor ax. The cardiomediastinal silhouette is normal. Cholecystectomy clips in right upper quadrant. Mild t horacic spondylosis. IMPRESSION: 1. No acute cardiopulmonary disease. Reviewed, dictated and finalized at location B.
--- NOTE | ~2024-03-04 | CT_ITS ---
EXAMINATION: CTA chest PE protocol DATE: 03/04/2024 11:33 INDICATION: Chest pain. Dyspnea. TECHNIQUE: Computed tomography angiography (CTA) of the chest was performed with 100 mL Omnipaque-350 intravenous contrast timed to evaluate the pulmonary arteries. Coronal maximum intensity projection 3D-reconstructions were created by the technologist. Automated exposure control and iterative reconst ruction technique were employed. The dose-length product was 236.67 mGy-cm. COMPARISON: None. FINDINGS: The lungs demonstrate mild atelectasis. No pleural effusion. The heart size is normal. No p ericardial effusion. There is no pulmonary embolus. There are changes of cholecystectomy. There is mi ld thoracic spondylosis. IMPRESSION: 1. No pulmonary embolus. Reviewed, dictated and finalized at location A. IMPRESSION: 1. No pulmonary embolus.
[2024-03-04 10:05] VITALS: BP 122/79; PULSE 87; RESP 12; TEMP 36.9; O2SAT 99
--- NOTE | 2024-03-04 10:12 | ECG_ITS ---
Test Date: 2024-03-04 10:14:45 Measurements Intervals [place] Rate: 84 P: 29 [place]: 164 QRS: 7 QRSD: 78 T: -2 QT: 323 QTc: 383 Interpretive Statements SINUS RHYTHM LOW QRS VOLTAGE IN PRECORDIAL LEADS BORDERLINE R WAVE PROGRESSION, ANTERIOR LEADS BORDERLINE T WAVE ABNORMALITY- ANT/INF LEADS BASELINE ARTIFACT- I, II, III, AVR, AVL, AVF BORDERLINE ECG No previous ECG available for comparison Electronically Signed On 03-04-2024 10:47:23 CDT by Boris Baig D.O.
[2024-03-04 10:27] LABS: Basophils Percent Auto 0.4 % (0.2-1.2); Eosinophils Absolute Auto 0.1 K/mm3 (0-0.3); Eosinophils Percent Auto 1.2 % (0-4.4); Hematocrit 38.5 % (37.0-47.0); Hemoglobin 13.1 g/dL (12.0-15.0); Immature Granulocyte Absolute 0.02 K/mm3 (0.00-0.031); Immature Granulocyte Percent A 0.3 % (0-0.5); Lymphocytes Absolute Auto 1.21 K/mm3 (0.9-3.2); Lymphocytes Percent Auto 17.7 % (18.3-44.2); Mean Corpuscular Hemoglobin 29.6 pg (26-34); Mean Corpuscular Volume 86.9 fl (80-100); Monocytes Absolute Auto 0.4 K/mm3 (0.1-0.6); Monocytes Percent Auto 5.6 % (2.6-8.5); Neutrophils Absolute Auto 5.1 K/mm3 (1.3-6.7); Neutrophils Percent Auto 74.8 % (45.5-73.1); Platelet Count Result 238 k/mm3 (150-375); Red Blood Count 4.43 M/mm3 (4.2-5.4); Red Cell Distribution Width 12.8 % (11.5-14.5); White Blood Count 6.8 K/mm3 (4.5-10.0)
--- NOTE | 2024-03-04 10:28 | ED.CHESTPAIN ---
HPI - Chest Pain General Chief Complaint: Chest Pain Stated Complaint: SYNCOPY/ CP Time Seen by Provider: 03/04/24 10:19 Source: patient Mode of arrival: ambulatory Limitations: no limitations History of Present Illness HPI narrative: This is a 48-year-old female with no pertinent PMH who presents to the ED via EMS from work today with complaint of syncopal episode. 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 Patient states that she started to have some heart palpitations and feeling nauseous. She is unsure of what happened related to the syncopal event. States that she currently has chest pain going into the left arm and left neck. Reports that she has been nauseous but Zofran helped en route. She was also given 324 aspirin EN route. Endorses some headache. denies fevers, chills, recent illness, cough, abdominal pain, vomiting, diarrhea, back pain, shortness of breath. Co-worker states that when patient passed out she may have been down for 1-2 minutes before coming back to. Related Data Home Medications Medication Instructions Recorded Confirmed amitriptyline 25 mg tablet 25 mg PO HS 12/22/21 12/22/21 Allergies Allergy/AdvReac Type Severity Reaction Status Date / Time No Known Drug Allergies Allergy Unknown Unknown Verified 03/04/24 10:17 Review of Systems Review of Systems: All systems as dictated in [facility] Past Medical History Medical History Anxiety Bronchitis Gall bladder disease Surgical History Surgical History Hx of appendectomy Hx of cholecystectomy Hx of tubal ligation Family History Family History Grandparent Leukemia Social History Social History Smoking status: Never smoker Second hand tobacco smoke exposure: Yes Alcohol intake: current Alcohol use details: rare social Substance use: never Living arrangements: with family Gender identity (if verbalized by the patient): Female Exam Narrative: GENERAL: Well-appearing, well-nourished, and in no acute distress. HEAD: Normocephalic, atraumatic. EYES: PERRLA and EOMI. ENT: Nares clear, no rhinorrhea or epistaxis. Mucous membranes moist. Oropharynx without tonsillar hypertrophy exudate or other lesions. NECK: Supple. No adenopathy or masses. CHEST: No respiratory distress. Clear to auscultation. No wheezes rales or rhonchi HEART: Regular rate and rhythm. No murmur heard. Normal peripheral pulses. ABDOMEN: Soft, nontender, nondistended, normal active bowel sounds. MSK: Normal range of motion. No edema. SKIN: Warm, dry, no rash. NEURO: Alert and oriented x4. No focal deficits. PSYCH: Normal mood and affect. Course Vital Signs Vital signs: Vital Signs Temperature 98.5 F 03/04/24 10:05 Pulse Rate 87 03/04/24 10:05 Respiratory Rate 12 03/04/24 10:05 Blood Pressure 122/79 03/04/24 10:05 Pulse Oximetry 99 03/04/24 10:05 Oxygen Delivery Room Air 03/04/24 10:05 Temperature 98.5 F 03/04/24 10:05 Pulse Rate 68 03/04/24 14:36 Respiratory Rate 16 03/04/24 14:36 Blood Pressure 114/95 H 03/04/24 14:36 Pulse Oximetry 99 03/04/24 14:36 Oxygen Delivery Room Air 03/04/24 11:18 MDM - Chest Pain MDM Narrative Medical decision making narrative: this is a 48-year-old female who presents to the ED with chief complaint of syncopal episode of work today. Vitals are normal. She did start having chest pain after arriving to the hospital but did not have chest pain during the syncope. EKG shows sinus rhythm with no acute ischemic findings Exam is benign Lab work shows mild dehydration on the CMP but otherwise unremarkable. CBC normal. 0 and 3 hour troponins are negative. repeat ECG shows
[2024-03-04 10:41] LABS: INR 0.9; Prothrombin Time 12.9 Seconds (11.1-14.7)
[2024-03-04 10:43] LABS: Alanine Aminotransferase 22 U/L (6-35); Albumin Level 4.5 g/dL (3.5-5.1); Alkaline Phosphatase 128 U/L (38-126); Anion Gap 13 mmol/L (4-12); Aspartate Amino Transferase 28 U/L (14-36); Bilirubin,Total 0.4 mg/dL (0.2-1.3); Blood Urea Nitrogen 19 mg/dL (7-17); Calcium 9.2 mg/dL (8.4-10.2); Carbon Dioxide 21 mmol/L (22-30); Chloride 105 mmol/L (98-107); Estimated CRCL calculation 95 ml/min; Estimated Glomerular Filt Rate > 60; Glucose 99 mg/dL (65-110); Lipase 144 U/L (23-300); Potassium 3.8 mmol/L (3.4-5.0); Sodium 139 mmol/L (137-145)
[2024-03-04] MEDS: MORPHINE SULFATE (*CRX) 4 MG/ML INJ IV PUSH (10:59)
[2024-03-04 11:00] VITALS: PULSE 70
[2024-03-04 11:07] LABS: Troponin I < 0.012 ng/mL (0.000-0.034)
[2024-03-04 11:10] LABS: NT Pro B Type Natriuretic Pept 76 pg/mL (19.9-100)
[2024-03-04 11:21] VITALS: PULSE 71; RESP 18; O2SAT 99
[2024-03-04] MEDS: SODIUM CHLORIDE 0.9% IV 1,000 ML 999 ML IV CONT (11:51)
[2024-03-04 12:50] VITALS: BP 132/103; PULSE 64; RESP 18; O2SAT 100
--- NOTE | 2024-03-04 13:01 | ECG_ITS ---
Test Date: 2024-03-04 13:10:22 Measurements Intervals [place] Rate: 61 P: 42 [place]: 181 QRS: 13 QRSD: 79 T: 8 QT: 381 QTc: 386 Interpretive Statements SINUS RHYTHM DELAYED PRECORDIAL R/S TRANSITION BORDERLINE T WAVE ABNORMALITY- INFERIOR LEADS BASELINE ARTIFACT- I, II, AVR, AVL BORDERLINE ECG Compared to ECG 03/04/2024 10:14:45 No significant changes Electronically Signed On 03-04-2024 13:27:13 CDT by Boris Baig D.O.
[2024-03-04 13:48] LABS: Troponin I < 0.012 ng/mL (0.000-0.034)
[2024-03-04 14:36] VITALS: BP 114/95; PULSE 68; RESP 16; O2SAT 99
== END 2024-03-04 14:38 | disposition home or self-care (01) ==
PROVIDERS: Emergency Medicine; Emergency Provider Physician Assistant
DX: R55 Syncope and collapse (principal); F41.9 Anxiety disorder, unspecified; Z90.49 Acquired absence of other specified parts of digestive tract; Z77.22 Contact with and (suspected) exposure to environmental tobacco smoke (acute) (chronic); Z79.899 Other long term (current) drug therapy; R94.31 Abnormal electrocardiogram [ECG] [EKG]
CPT/HCPCS: 36415; 71046; 71275; 80053; 83690; 83880; 84484; 85025; 85610; 85730; 93005; 96361; 96374; 99284; J2270; J7030; Q9967